=== PATIENT | female | born 2000 | race African-American/Black ===

== ENCOUNTER 2023-06-26 18:11 | Emergency (ER) | payer OTHER ==
[2023-06-26 18:28] VITALS: BP 112/73; PULSE 76; RESP 19; TEMP 98; BMI 33.5
[2023-06-26] MEDS ORDERED: IBUPROFEN 400 MG TABLET (FP) PO ONE ×3 (19:42→20:20)
[2023-06-26 20:29] LABS: PH,URINE 7.5 (5.0-8.0); URINE APPEARANCE CLEAR; URINE BILIRUBIN NEGATIVE (NEGATIVE); URINE COLOR YELLOW; URINE GLUCOSE (UA) NEGATIVE (NEGATIVE); URINE KETONE NEGATIVE (NEGATIVE); URINE LEUK ESTERASE NEGATIVE (NEGATIVE); URINE NITRITE NEGATIVE (NEGATIVE); URINE PROTEIN NEGATIVE (NEGATIVE); URINE UROBILINOGEN 0.2 mg/dL (0.2-1.0)
[2023-06-26 20:32] LABS: HCG,QUALITATIVE URINE Negative
[2023-06-26 20:53] LABS: THROAT:GRP A STREP DETECTED (NOTDETECTED)
[2023-06-26] MEDS ORDERED: AMOXICILLIN 500 MG CAPSULE (FP) PO ONE (21:28)
[2023-06-26] MEDS ORDERED: AMOXICILLIN 250 MG CAPSULE ONE (21:43)
== END 2023-06-26 23:22 | disposition home or self-care (01) ==
LOC: JER 18:11 → JERFT 18:11
DX: R09.81 Nasal congestion (principal); R05.9 Cough, unspecified; J10.1 Influenza due to other identified influenza virus with other respiratory manifestations; J02.0 Streptococcal pharyngitis; Z20.822 Contact with and (suspected) exposure to COVID-19
CPT/HCPCS: 0241U-QW; 71046-TC-FY; 81003; 84703; 87086; 87651; 99284-25